=== PATIENT | male | born 1995 | race Caucasian/White ===

== ENCOUNTER 2018-01-28 07:45 | Emergency (ER) | payer OTHER ==
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
[2018-01-28 08:39] VITALS: BMI 28.0
[2018-01-28 09:23] LABS: BASO % 0.7 % (0-2.0); EOS % 0.2 % (0-4.5); HEMATOCRIT 43.1 % (35.4-49); HEMOGLOBIN 14.8 GM/dL (11.7-16.9); LYMPH % 26.1 % (8-40); MCHC 34.2 g/dl (32.0-35.9); MEAN CELL VOLUME 93.5 fl (80-96); MEAN PLT VOLUME 8.1 fl (7.5-11.1); MONO % 7.7 % (3.8-10.2); NEUT % 65.3 % (42.8-82.8); PLATELET COUNT 350 K/MM3 (134-434); RBC 4.61 M/mm3 (4.00-5.60); RDW 12.8 % (11.9-15.9); WHITE BLOOD COUNT 8.9 K/mm3 (4.0-10.0)
[2018-01-28 09:44] LABS: ALBUMIN 4.1 g/dl (3.4-5.0); ANION GAP 10 MMOL/L (8-16); BILIRUBIN,TOTAL 0.5 mg/dL (0.2-1.0); BLOOD UREA NITROGEN 8 mg/dL (7-18); CALCIUM 9.2 mg/dL (8.5-10.1); CHLORIDE 108 mmol/L (98-107); CO2 25 mmol/L (21-32); CREATININE 0.9 mg/dL (0.7-1.3); GLUCOSE,RANDOM 97 mg/dL (74-106); POTASSIUM 3.7 mmol/L (3.5-5.1); SGOT/AST 27 U/L (15-37); SODIUM 143 mmol/L (136-145); TOT PROT 7.5 g/dl (6.4-8.2)
[2018-01-28 10:04] LABS: ALK PHOS 109 U/L (45-117); SGPT/ALT 41 U/L (12-78)
[2018-01-28 10:18] LABS: URINE APPEARANCE CLEAR; URINE BILIRUBIN NEGATIVE (<2.0 mg/dL); URINE COLOR LTYELLOW; URINE GLUCOSE (UA) NEGATIVE (NEGATIVE); URINE KETONE TRACE (NEGATIVE); URINE LEUK ESTERASE NEGATIVE (NEGATIVE); URINE NITRITE NEGATIVE (NEGATIVE); URINE PROTEIN NEGATIVE (NEGATIVE); URINE UROBILINOGEN NEGATIVE mg/dL (0.2-1.0)
[2018-01-28 10:42] LABS: OPIATES, URI NEGATIVE ng/ml (CUTOFF=300); URINE AMPHETAMINES NEGATIVE ng/ml (CUTOFF=500)
[2018-01-28 10:54] LABS: COCAINE, UR NEGATIVE ng/ml (CUTOFF=300); METHADONE, UR NEGATIVE ng/ml (CUTOFF=300); PHENCYCLIDINE,URINE NEGATIVE ng/ml (CUTOFF=25); URINE BARBITURATES NEGATIVE ng/ml (CUTOFF=200); URINE BENZODIAZEPINES NEGATIVE ng/ml (CUTOFF=200)
[2018-01-28 11:29] VITALS: BP 132/70; PULSE 88; TEMP 97.9
== END 2018-01-28 11:29 | disposition home or self-care (01) ==
LOC: JER 07:45
DX: M54.2 Cervicalgia (principal); S49.81XA Other specified injuries of right shoulder and upper arm, initial encounter; M79.601 Pain in right arm; V43.52XA Car driver injured in collision with other type car in traffic accident, initial encounter; W22.11XA Striking against or struck by driver side automobile airbag, initial encounter; Y92.488 Other paved roadways as the place of occurrence of the external cause; Y93.89 Activity, other specified; Y99.8 Other external cause status; F10.10 Alcohol abuse, uncomplicated; Y90.3 Blood alcohol level of 60-79 mg/100 ml
CPT/HCPCS: 36415; 70450-TC; 72125-TC; 73030-TC-RT-FY; 73060-TC-RT-FY; 73070-TC-RT-FY; 73090-TC-RT-FY; 73110-TC-RT-FY; 80053; 80307; 81003; 85025; 87086; 99283-25

== ENCOUNTER 2020-06-01 11:51 | Emergency (ER) | payer SELFPAY ==
[2020-06-01 11:56] VITALS: BP 127/71; PULSE 86; TEMP 97.9; BMI 37.3
== END 2020-06-01 12:42 | disposition home or self-care (01) ==
LOC: JER 11:51
DX: R09.81 Nasal congestion (principal)
CPT/HCPCS: 99284-25; C9803; U0003

== ENCOUNTER 2020-12-09 21:04 | Emergency (ER) | payer SELFPAY ==
[2020-12-09 21:19] VITALS: BP 138/77; PULSE 102; TEMP 98.8; BMI 34.4
== END 2020-12-09 22:38 | disposition home or self-care (01) ==
LOC: JER 21:04
DX: T50.995A Adverse effect of other drugs, medicaments and biological substances, initial encounter (principal)
CPT/HCPCS: 82962; 93005; 93010; 99284-25

== ENCOUNTER 2022-03-20 08:55 | Emergency (ER) | payer OTHER ==
[2022-03-20 09:08] VITALS: BP 117/69; PULSE 75; RESP 18; TEMP 98; BMI 34.4
[2022-03-20] MEDS ORDERED: DIPHTH,PERTUSS(ACELL),TET 0.5 ML DISP.SYRIN IM ONE ×3 (09:51→10:23)
== END 2022-03-20 10:43 | disposition home or self-care (01) ==
LOC: JERFT 08:55
PROC: 0HQGXZZ Repair Left Hand Skin, External Approach (ICD-10-PCS; principal; 2022-03-20)
PROC: 3E0234Z Introduction of Serum, Toxoid and Vaccine into Muscle, Percutaneous Approach (ICD-10-PCS; 2022-03-20)
DX: S61.512A Laceration without foreign body of left wrist, initial encounter (principal); W25.XXXA Contact with sharp glass, initial encounter
CPT/HCPCS: 73110-TC-LT-FY; 90715; 99284-25